=== PATIENT | female | born 1995 | race Caucasian/White ===

== ENCOUNTER 2017-04-11 20:12 | Emergency (ER) | payer BC ==
[2017-04-12] MEDS ORDERED: NS 0.9% 1000 ML* 2,000 ML IV ONE (01:05)
--- NOTE | 2017-04-12 08:29 | ED ---
Royal King Nilda, scribed for Adalid Hernandes MD on 04/12/17 at 0639 . HPI Febrile Illness - HPI Summary HPI Summary: Pt is a 21 yo F presenting to [facility] with a chief complaint of fever since 5 hours ago. Symptoms are aggravated my nothing. One month ago patient had scotoma. 2 weeks ago patient experienced loss of vision (lasting a few seconds) , whole right-sided weakness, and diplopia. She was seen at [facility] and they reported normal CT. For the past few days patient has been experiencing diaphoresis, chills, fevers, weakness, palpitations, tingling "bubbling sensation" in LLE and RUE, knee swelling, canker sores, sore throat, and rhinorrhea. At 0830 yesterday, patient heard loud noises in head and had temporary loss in vision bilaterally. She reports a headache that has been present for about 5 hours that radiates to the neck. PMHx of silent migraines for 3 years (normally presented as afterimage and color spots). Patient is on Prozac. - History of Current Complaint Chief Complaint: EDFever Time Seen by Provider: 04/12/17 01:51 Hx Obtained From: Patient Onset/Duration: Started Hours Ago - 5 hours Timing: Constant Initial Severity: Moderate Current Severity: Moderate Pain Intensity: 4 Pain Scale Used: 0-10 Numeric Aggravating Factors: Nothing Associated Signs and Symptoms: Chills, Diaphoresis, Headache - Allergy/Home Medications Allergies/Adverse Reactions: Allergies Allergy/AdvReac Type Severity Reaction Status Date / Time No Known Allergies Allergy Verified 04/11/17 20:16 PMH/Surg Hx/FS Hx/Imm Hx Neurological History: Reports: Hx Migraine - chronic silent migraines (3 years) Psychiatric History: Reports: Hx Anxiety, Hx Depression Infectious Disease History: No Infectious Disease History: Denies: Traveled Outside the [place] in Last 30 Days - Family History Known Family History: Positive: Diabetes - Social History Alcohol Use: None Substance Use Type: Reports: None Smoking Status (MU): Former Smoker Review of Systems Positive: Fever, Chills, Skin Diaphoresis Positive: Diplopia, Other - temporary loss in vision bilaterally ENT: Other - canker sores Positive: Sore Throat Positive: Palpitations Positive: Other - neck pain Positive: Headache - Present 5 hours that radiates to neck, Weakness - usually right sided (not currently present), Numbness - tingling "bubbling sensation" in LLE and RUE All Other Systems Reviewed And Are Negative: Yes Physical Exam - Summary Physical Exam Summary: General: well-appearing, no pain distress Skin: warm, color reflects adequate perfusion, dry Head: normal Eyes: EOMI, LUCY ENT: normal Neck: supple, nontender Respiratory: CTA, breath sounds present Cardiovascular: RRR Abdomen: soft, nontender Bowel: present Musculoskeletal: normal, strength/ROM intact Neurological: normal, sensory/motor intact, A&O x3 Psychological: affect/mood appropriate Triage Information Reviewed: Yes Vital Signs On Initial Exam: Initial Vitals Temp Pulse Resp BP Pulse Ox 99.3 F 80 16 119/75 98 04/11/17 20:13 04/11/17 20:13 04/11/17 20:13 04/11/17 20:13 04/11/17 20:13 Vital Signs Reviewed: Yes - [place] Coma Scale Coma Scale Total: 15 Diagnostics - Vital Signs Vital Signs Temp Pulse Resp BP Pulse Ox 04/12/17 00:01 97.9 F 85 18 130/89 99 04/11/17 22:00 98.6 F 72 18 122/76 100 04/11/17 20:13 99.3 F 80 16 119/75 98 - Laboratory Lab Statement: Any lab studies that have been ordered have been reviewed, and results considered in the medical decision making process. Course/Dx - Course Course Of Treatment: PATIENT REPORTS NORMAL HEAD CT 2 WEEKS AGO AT [facility]. SHE DECLINES FURTHER IMAGING AT THIS TIME AND PREFERS TO WAIT FOR LABS UNTIL RECOMMENED BY NEUROLOGY. PATIENT DISCUSSED WITH DR FERRERA. HE WILL SEE HER IN HIS OFFICE THIS AM. NO CRITICAL CARE TIME. - Diagnoses Provider Diagnoses: Headache, Vision loss, bilateral, Paresthesia Discharge - Discharge Plan Condition: Stable Disposition: HOME Patient Education Materials: Acute Headache (ED), Paresthesia (ED) Referrals: No Primary Care Phys,NOPCP [Primary Care Provider] - Lucian Ferrera MD [Medical Doctor] - Additional Instructions: FOLLOW UP WITH NEUROLOGY, DR FERRERA, TODAY IN THE MEDICAL BUILDING, ROOM 301. RETURN TO THE EMERGENCY DEPARTMENT FOR ANY WORSENING OF YOUR CONDITION OR QUESTIONS OR CONCERNS. The documentation as recorded by the Royal byrd Nilda accurately reflects the service I personally performed and the decisions made by me, Adalid Hernandes MD.
[2017-04-12 09:09] LABS: Hematocrit 40 % (35-47); Hemoglobin 13.8 g/dl (12.0-16.0); Mean Corpuscular HGB Conc 34 g/dl (31-36); Mean Corpuscular Hemoglobin 31 pg (27-31); Mean Corpuscular Volume 90 fL (80-97); Mean Platelet Volume 8 um3 (7.4-10.4); Red Blood Count 4.49 10^6/ul (4.0-5.4); Red Cell Distribution Width 13 % (10.5-15); White Blood Count 8.3 10^3/ul (3.5-10.8)
[2017-04-12 09:21] VITALS: BP 122/74
[2017-04-12 09:31] LABS: ALT 14 U/L (7-52); AST 16 U/L (13-39); Albumin 4.6 g/dL (3.2-5.2); Alkaline Phosphatase 37 U/L (34-104); Anion Gap 7 mmol/L (2-11); BUN/Creatinine Ratio 15.7 (8-20); Blood Urea Nitrogen 13 mg/dL (6-24); C Reactive Protein < 1.00 mg/L (< 5.00); CO2 Carbon Dioxide 24 mmol/L (22-32); Calcium 9.5 mg/dL (8.6-10.3); Chloride 106 mmol/L (101-111); EGFR African American 112.7 (>60); EGFR Non-African American 87.6 (>60); Globulin 2.3 g/dL (2-4); Glucose 91 mg/dL (70-100); Potassium 3.7 mmol/L (3.5-5.0); Sodium 137 mmol/L (133-145); Total Protein 6.9 g/dL (6.4-8.9)
[2017-04-12 09:58] LABS: TSH (Thyroid Stimulating Horm) 3.19 mcIU/mL (0.34-5.60)
== END 2017-04-12 09:15 | disposition home or self-care (01) ==
LOC: ED 20:12
DX: R51 Headache (principal); H54.7 Unspecified visual loss; R50.9 Fever, unspecified; J02.9 Acute pharyngitis, unspecified; R20.9 Unspecified disturbances of skin sensation; Z87.891 Personal history of nicotine dependence; R00.2 Palpitations
CPT/HCPCS: 36415; 80053; 83605; 84443; 84702; 85025; 85610; 86140; 86618; 99283